=== PATIENT | male | born 1950 | race Hispanic/Latino ===

== ENCOUNTER → 2019-08-18 | Outpatient (CLI) | payer OTHER ==
[~2019-08-18] MED LIST: ESOMEPRAZOLE PO; HYDR-3420 PO; METO100T14 PO; VALA100027 PO
== END | disposition home or self-care (01) ==
LOC: OIH 11:00
PROVIDERS: ATTEND Internal Medicine Cardiovascular Disease
DX: Z13.6 Encounter for screening for cardiovascular disorders (principal); K44.9 Diaphragmatic hernia without obstruction or gangrene
CPT/HCPCS: 75571

== ENCOUNTER → 2019-08-29 | Outpatient (CLI) | payer MEDICARE ==
[~2019-08-29] MED LIST changes: -VALA100027 PO; +VALA100031 PO
== END | disposition home or self-care (01) ==
LOC: SHCH 09:56
PROVIDERS: ATTEND Internal Medicine Cardiovascular Disease
DX: R01.1 Cardiac murmur, unspecified (principal)
CPT/HCPCS: 93306; 93356

== ENCOUNTER → 2019-09-02 | Outpatient (CLI) | payer MEDICARE | END | disposition home or self-care (01) | LOC: SHCH 09:27 | PROVIDERS: ATTEND Internal Medicine Cardiovascular Disease | DX: I65.23 Occlusion and stenosis of bilateral carotid arteries (principal) | CPT/HCPCS: 93880 ==

== ENCOUNTER → 2021-02-26 | Outpatient (CLI) | payer MEDICARE | END | disposition home or self-care (01) | LOC: SHCH 11:51 | PROVIDERS: ATTEND Internal Medicine Cardiovascular Disease | DX: I35.8 Other nonrheumatic aortic valve disorders (principal); I42.0 Dilated cardiomyopathy | CPT/HCPCS: 93306; 93356 ==

== ENCOUNTER → 2022-05-07 | Outpatient (CLI) | payer MEDICARE | END | disposition home or self-care (01) | LOC: RAH 14:46 | PROVIDERS: ATTEND Orthopaedic Surgery | DX: M17.11 Unilateral primary osteoarthritis, right knee (principal); M25.461 Effusion, right knee; M25.761 Osteophyte, right knee; I77.1 Stricture of artery | CPT/HCPCS: 73700 ==

== ENCOUNTER 2022-06-03 07:00 | Observation (INO) | payer MEDICARE ==
[2022-05-29 13:08] LABS: BASOPHILS % (AUTO) 0.7 % (0.0-5.0); HEMATOCRIT 42.8 % (42-54); LYMPHOCYTES % (AUTO) 29.9 % (21.0-51.0); MEAN CORPUSCULAR HEMOGLOBIN 32.6 pg (27.0-33.0); MEAN CORPUSCULAR HGB CONC 33.2 g/dL (32.0-36.0); MEAN CORPUSCULAR VOLUME 98.2 fL (79-99); MONOCYTES % (AUTO) 8.9 % (3.0-13.0); NEUTROPHILS % (AUTO) 56.4 % (40.0-77.0); PLATELET COUNT (AUTO) 253 K/uL (130-400); RED BLOOD CELL COUNT(AUTO) 4.36 MIL/uL (4.50-6.20); RED CELL DISTRIBUTION WIDTH 12.7 % (11.0-15.5); WHITE BLOOD COUNT (AUTO) 8.6 K/uL (4.8-10.8)
[2022-05-29 13:19] LABS: PROTHROMBIN TIME 10.9 SEC (9.6-11.6)
[2022-05-29 13:20] LABS: CREATININE 1.1 mg/dL (0.5-1.5)
[2022-05-29 13:21] LABS: PARTIAL THROMBOPLASTIN TIME 24.5 SEC (26.3-35.5)
[2022-06-02 09:46] VITALS: BP 174/81
[~2022-06-03] VITALS: Ht 170.2 cm; Wt 110.1 kg
[2022-06-03] VITALS (27 sets, daily range): BP systolic 114–139; BP diastolic 60–74
[~2022-06-03 07:00] MED LIST changes: +AEC81 PO; -ESOMEPRAZOLE PO; +FINA5TAB41 PO; -HYDR-3420 PO; +OMEP40CA21 PO; +ROSU5TAB12 PO; +SUPER B COMPLEX PO; +TAMS-1 PO; +VITAMIN D3 PO; +[UNRECOGNIZED DRUG - OTHER] PO; +[UNRECOGNIZED DRUG - OTHER] SL; +[UNRECOGNIZED DRUG - OTHER] TP
[2022-06-03] MEDS ORDERED: CEFAZOLIN SODIUM 1 GM VIAL ONE (07:55)
[2022-06-03] MEDS ORDERED: LACTATED RINGERS 1000ML 1,000 ML IV ONE (07:55)
[2022-06-03] MEDS ORDERED: FENTANYL CITRATE PF 50 MCG/1 ML 5ML AMP IV ONE ×2 (08:16→10:48)
[2022-06-03] MEDS ORDERED: TRANEXAMIC ACID 1000MG/10ML ONE (09:00)
[2022-06-03] MEDS ORDERED: LIDOCAINE PF 100MG/5ML (2%) SYRINGE 5ML ONE (10:17)
[2022-06-03] MEDS ORDERED: DEXAMETHASONE SOD PHOSPHATE 10MG/ML 1ML VIAL ONE (10:17)
[2022-06-03] MEDS ORDERED: ONDANSETRON 4MG INJ ONE (10:17)
[2022-06-03] MEDS ORDERED: SUCCINYLCHOLINE CHLORIDE 20 MG/ML 10 ML VIAL ONE (10:17)
[2022-06-03] MEDS ORDERED: GLYCOPYRROLATE 1 MG/5 ML SYRINGE ONE (10:18)
[2022-06-03] MEDS ORDERED: NEOSTIGMINE 5MG/5ML SYR IV ONE (10:18)
[2022-06-03] MEDS ORDERED: PROPOFOL 10 MG/ML 20ML VIAL IV ONE (10:18)
[2022-06-03] MEDS ORDERED: MIDAZOLAM HCL 1 MG/ML 2ML VIAL ONE (10:18)
[2022-06-03] MEDS ORDERED: CEFAZOLIN SODIUM 2 GM VIAL IV ONE (11:35)
[2022-06-03] MEDS ORDERED: EPHEDRINE SULFATE 50 MG/ML AMPULE ONE (11:54)
[2022-06-03] MEDS ORDERED: ROPIVACAINE 0.5% 5MG/ML 30ML IJ ONE (12:08)
[2022-06-03] MEDS ORDERED: KETOROLAC 30MG VIAL (30MG/ML) ONE (12:53)
[2022-06-03] MEDS ORDERED: MEPERIDINE-PF 25 MG/ML SYG ONE ×3 (12:53→14:11)
[2022-06-03] MEDS ORDERED: ALBUTEROL INHALER 90MCG/INH IH ONE (13:38)
[2022-06-03] MEDS ORDERED: KCL 20 MEQ ERTAB PO PRN (14:00)
[2022-06-03] MEDS ORDERED: ONDANSETRON 4MG INJ IVP PRN (14:00)
[2022-06-03] MEDS ORDERED: POTASSIUM CHLORIDE 20MEQ/100ML 100 ML IV PRN (14:00)
[2022-06-03] MEDS ORDERED: HYDROCODONE/ACETAMINOPHEN 10/325 MG TAB PO PRN (14:00)
[2022-06-03] MEDS ORDERED: HYDROCODONE/ACETAMINOPHEN 5/325 MG TAB PO PRN (14:00)
[2022-06-03] MEDS ORDERED: POTASSIUM CHLORIDE 10% ELIXIR 20 MEQ/15 ML UDCUP PO PRN (14:00)
[2022-06-03] MEDS ORDERED: MORPHINE 4 MG SYG IVP PRN (14:00)
[2022-06-03] MEDS ORDERED: LIDOCAINE HCL-MPF 1% 2ML VIAL IV PRN (14:00)
[2022-06-03] MEDS: ACETAMINOPHEN 1,000 MG/100 ML VIAL IV SCH ×2 (14:07→20:48)
[2022-06-03] MEDS ORDERED: IBUPROFEN 800MG + NS 250ML IV SCH (17:00)
[2022-06-03] MEDS: 0.9%NACL 1000ML 1,000 ML IV SCH (17:17)
[2022-06-03] MEDS: TRAMADOL HCL 50 MG TABLET PO SCH (17:18)
[2022-06-03] MEDS: ASPIRIN 81 MG EC TAB PO SCH (19:50)
[2022-06-03] MEDS: CEFAZOLIN SODIUM 1 GM VIAL IVP SCH (19:50)
[2022-06-03] MEDS: METOPROLOL TARTRATE 50 MG TAB PO SCH (19:51)
[2022-06-03] MEDS: CALDOLOR 800MG+NS 250ML 250 ML IV SCH (20:00)
[2022-06-03] MEDS ORDERED: FINASTERIDE 5 MG TABLET PO SCH (21:00)
[2022-06-03] MEDS ORDERED: TAMSULOSIN HCL 0.4 MG CAP.ER.24H PO SCH (21:00)
[2022-06-04] MEDS: TRAMADOL HCL 50 MG TABLET PO SCH ×2 (00:03→05:24)
[2022-06-04 00:25] VITALS: BP 129/68
[2022-06-04] MEDS: CEFAZOLIN SODIUM 1 GM VIAL IVP SCH (01:21)
[2022-06-04] MEDS: ACETAMINOPHEN 1,000 MG/100 ML VIAL IV SCH (01:21)
[2022-06-04] MEDS: CALDOLOR 800MG+NS 250ML 250 ML IV SCH (03:36)
[2022-06-04 04:29] VITALS: BP 124/66
[2022-06-04 05:28] LABS: HEMATOCRIT 39.2 % (42-54); MEAN CORPUSCULAR HEMOGLOBIN 32.4 pg (27.0-33.0); MEAN CORPUSCULAR HGB CONC 33.7 g/dL (32.0-36.0); MEAN CORPUSCULAR VOLUME 96.3 fL (79-99); RED BLOOD CELL COUNT(AUTO) 4.07 MIL/uL (4.50-6.20); RED CELL DISTRIBUTION WIDTH 12.5 % (11.0-15.5); WHITE BLOOD COUNT (AUTO) 19.3 K/uL (4.8-10.8)
[2022-06-04 05:38] LABS: CREATININE 1.1 mg/dL (0.5-1.5); POTASSIUM 4.4 mmol/L (3.5-5.1)
[2022-06-04 08:00] VITALS: BP 145/76
[2022-06-04] MEDS ORDERED: POLYETHYLENE GLYCOL 3350 17 GM POWD.PACK PO SCH (09:00)
[2022-06-04 09:19] LABS: MEAN CORPUSCULAR HEMOGLOBIN 32.4 pg (27.0-33.0); MEAN CORPUSCULAR HGB CONC 33.2 g/dL (32.0-36.0); MEAN CORPUSCULAR VOLUME 97.6 fL (79-99); PLATELET COUNT (AUTO) 280 K/uL (130-400); RED CELL DISTRIBUTION WIDTH 12.6 % (11.0-15.5); WHITE BLOOD COUNT (AUTO) 22.1 K/uL (4.8-10.8)
[2022-06-04] MEDS: ASPIRIN 81 MG EC TAB PO SCH (09:51)
[2022-06-04] MEDS: 0.9%NACL 1000ML 1,000 ML IV SCH ×2 (09:52)
[2022-06-04] MEDS: METOPROLOL TARTRATE 50 MG TAB PO SCH (09:52)
[2022-06-04 10:09] LABS: LYMPHOCYTES % (MANUAL) 5 % (22-44); MAN.DIFF COMMENT-IMPRESSION MANUAL DIFFERENTIAL; MONOCYTES % (MANUAL) 9 % (2-9); PLATELET MORPHOLOGY COMMENT ADEQUATE; SEGMENTED NEUTROPHILS % 86 % (40-70)
[2022-06-04 12:00] VITALS: BP 126/74
[2022-06-05] MEDS ORDERED: VALACYCLOVIR HCL 500 MG TABLET PO SCH (09:00)
[2022-06-05] MEDS ORDERED: PANTOPRAZOLE 40 MG TAB DR PO SCH (09:00)
[2022-06-06] MEDS ORDERED: BISACODYL 10 MG SUPP.RECT RC PRN (14:00)
== END 2022-06-04 14:19 | disposition home or self-care (01) ==
LOC: DAH 07:00 → DAHIP 07:01 → 4CH 14:31
PROVIDERS: ADMIT Orthopaedic Surgery; ATTEND Orthopaedic Surgery
DX: M21.161 Varus deformity, not elsewhere classified, right knee (principal); Z20.822 Contact with and (suspected) exposure to COVID-19; M17.11 Unilateral primary osteoarthritis, right knee; I10 Essential (primary) hypertension; E78.5 Hyperlipidemia, unspecified; N41.9 Inflammatory disease of prostate, unspecified; Z79.899 Other long term (current) drug therapy; Z98.890 Other specified postprocedural states
CPT/HCPCS: 80048 ×2; 85025 ×2; 85610; 85730; 87426; 36415 ×2; 87641; 27447; 96376 ×2; 96365; 96366 ×2; 96375; 96367; 76942; 64447; 97039 ×2; 85027; 97161; 97116 ×2; 97530 ×2; A6260; G0378 ×23; A4663; J7030; A4649 ×5; J7120; J3010 ×2; J0690 ×4; J3490 ×3; J1100; J2710; J0330; J2001; J2250; J2704; J2405; J1885; J2175 ×3; J2795; J1741 ×3; G0168; A4930; C1776 ×4; A6255; A6254; A4215; A4223; A4222; A4221

== ENCOUNTER 2024-03-14 06:02 | Day surgery (SDC) | payer MEDICARE ==
[2024-03-11 11:22] LABS: BASOPHILS # (AUTO) 0.05 K/uL (0.00-0.20); BASOPHILS % (AUTO) 0.7 % (0.0-5.0); EOSINOPHILS # (AUTO) 0.27 K/uL (0.00-0.70); EOSINOPHILS % (AUTO) 3.8 % (0.0-8.0); HEMATOCRIT 46.2 % (42-54); IMMATURE GRANULOCYTE ABSOLUTE 0.01 K/uL (0-1); LYMPHOCYTES # (AUTO) 2.2 K/uL (1.0-4.8); MEAN CORPUSCULAR HEMOGLOBIN 31.1 pg (27.0-33.0); MEAN CORPUSCULAR HGB CONC 33.1 g/dL (32.0-36.0); MEAN CORPUSCULAR VOLUME 93.9 fL (79-99); MONOCYTES # (AUTO) 0.5 K/uL (0.1-1.0); MONOCYTES % (AUTO) 6.4 % (3.0-13.0); NEUTROPHILS # (AUTO) 4.2 K/uL (1.8-7.7); PLATELET COUNT (AUTO) 247 K/uL (130-400); RED BLOOD CELL COUNT(AUTO) 4.92 MIL/uL (4.50-6.20); RED CELL DISTRIBUTION WIDTH 13.5 % (11.0-15.5); WHITE BLOOD COUNT (AUTO) 7.2 K/uL (4.8-10.8)
[2024-03-11 11:27] LABS: CREATININE 1.1 mg/dL (0.5-1.3); POTASSIUM 4.6 mmol/L (3.5-5.1)
[2024-03-11 11:28] VITALS: BP 139/74; PULSE 59; RESP 18
[2024-03-11 11:39] LABS: INR 1.22 (0.85-1.15)
[2024-03-11 11:40] LABS: PARTIAL THROMBOPLASTIN TIME 29.2 SEC (26.3-35.5)
[~2024-03-14] VITALS: Ht 170.2 cm; Wt 104.8 kg
[2024-03-14] VITALS (7 sets, daily range): BP systolic 112–163; BP diastolic 46–90; PULSE 60–65; RESP 14–16
[~2024-03-14 06:02] MED LIST changes: +ACET-66 PO; +CHOL200074 PO; +METO-409 PO; -METO100T14 PO; +RIVA20TA PO; -ROSU5TAB12 PO; +ROSU5TAB43 PO; +SILD50TA PO; -SUPER B COMPLEX PO; +VITA1CAP85 PO; -VITAMIN D3 PO; -[UNRECOGNIZED DRUG - OTHER] PO; -[UNRECOGNIZED DRUG - OTHER] SL; -[UNRECOGNIZED DRUG - OTHER] TP
[2024-03-14] MEDS ORDERED: BUPIvacaine/PF 0.25% 30ML VIAL IJ ONE (07:17)
[2024-03-14] MEDS ORDERED: LIDOCAINE HCL 1% MDV 50ML VIAL ONE (07:17)
[2024-03-14] MEDS ORDERED: ceFAZolin SODIUM 1 GM VIAL ONE (07:37)
[2024-03-14] MEDS ORDERED: MIDAZOLAM HCL 1 MG/ML 2ML VIAL ONE ×2 (07:50→07:55)
[2024-03-14] MEDS ORDERED: MEPERIDINE-PF 25 MG/ML SYG ONE ×2 (07:50→07:55)
[2024-03-14] MEDS ORDERED: BACITRACIN 1 EACH PACKET TP ONE (08:30)
[2024-03-14] MEDS ORDERED: TRAM50TA4 PO (08:56)
[2024-03-14] MEDS ORDERED: acetaMINOPHEN 500 MG TABLET PO PRN (09:00)
[2024-03-14] MEDS ORDERED: acetaMINOPHEN WITH coDEINE 1 TAB TAB PO PRN (09:00)
== END 2024-03-14 11:00 | disposition home or self-care (01) ==
LOC: DAH 06:02
PROVIDERS: ATTEND Internal Medicine Cardiovascular Disease
DX: Z45.010 Encounter for checking and testing of cardiac pacemaker pulse generator [battery] (principal); I49.5 Sick sinus syndrome; T82.897A Other specified complication of cardiac prosthetic devices, implants and grafts, initial encounter; I10 Essential (primary) hypertension; E66.9 Obesity, unspecified; Z68.35 Body mass index [BMI] 35.0-35.9, adult; Z79.82 Long term (current) use of aspirin; Z79.01 Long term (current) use of anticoagulants; Z79.899 Other long term (current) drug therapy; Y82.8 Other medical devices associated with adverse incidents
CPT/HCPCS: 80048; 85025; 85610; 85730; 36415; 93005; 33228; C1785; J0690; J0665; J2250 ×2; J2175 ×2; J3490; A4215; A6251; A4222; A4221; A4663; A4216; A6258; A4606; A4223 ×3; 99156; 99157